=== PATIENT | female | born 1945 | race Caucasian/White ===

== ENCOUNTER 2024-06-01 09:12 | Observation (INO) ==
--- NOTE | 2024-05-21 10:15 | Anesthesiology Consultation ---
Date of Service May 21, 2024 Assessment & Plan (1) Encounter for pre-operative examination: - check BMP STAT am DOS. Fluid orders to anesthesiologist review am DOS. - left arm restriction. - Per aircraft launch and recovery technician on 05/21/24: No known infectious disease contacts, current infectious disease symptoms in past 10 days or COVID positive test result in the past 30 days. Chart Review Chart Review: Acceptable Risk for Surgery and Patient NOT seen in Pre Admission Testing History Surgery Operation Date: 06/01/24 10:20 Proposed Procedures p Robotic Assisted Laparoscopic Hysterectomy, Bilateral Salpingo-Oophorectomy, Robotic Assisted Sacral Colpopexy, Cystoscopy and - Fred Fulton MD s Mid Urethral Sling - Fred Fulton MD Height/Weight Height: 5 ft 3 in Weight: 63.503 kg Allergies Allergy/AdvReac Type Severity Reaction Status Date / Time No Known Allergies Allergy Verified 05/21/24 09:22 Medications Home Medications Medication Instructions Recorded Confirmed Last Taken amlodipine 5 mg tablet 10 mg PO QAM 05/21/24 05/21/24 Unknown aspirin 81 mg tablet,delayed 81 mg PO QAM 05/21/24 05/21/24 Unknown release atorvastatin 20 mg tablet 80 mg PO Q OTHER DAY 05/21/24 05/21/24 Unknown clopidogrel 75 mg tablet 75 mg PO QAM 05/21/24 05/21/24 Unknown Past Medical History Medical History (Updated 05/21/24 @ 10:07 by Jessica Lazaro PA-C) Hx-TIA (transient ischemic attack) May 23, 2023 > no residual effects HX: breast cancer 2011 > sx and chemo pill since NE'ed Hyperlipidemia Hypertension Past Surgical History Surgical History History of adenoidectomy History of tonsillectomy History of tooth extraction Hx of left mastectomy 2011 Social History Smoking Status: Never smoker Do You Dip or Chew Tobacco: No Hx Alcohol Use: No Hx Substance Use: No substance use type: does not use Testing Laboratory Results 05/07/24 WBC: 6.9 H/H: 12/39 PLATELETS: 244,000 Electrocardiogram Date: 05/07/24 NSR, rate 80 bpm Low voltage QRS consider pulmonary disease, pericardial effusion or normal variant Other Testing MRI brain 05/23/23 Punctate acute/subacute lacunar ischemia in the left thalamus. No acute intracranial hemorrhage, mass effect nor midline shift. Hyperintense T2/FLAIR signal within the periventricular subcortical white matter as well as the carol compatible with chronic small vessel ischemic disease or nonspecific demyelinating process. CT head/brain w/o contrast 05/23/23 Likely sequela of chronic small vessel ischemic disease. No acute intracranial findings. CTA head/neck 05/23/23 No acute CTA abnormalities of the intracranial arterial vasculature involving the anterior or posterior circulation. Codominant vertebrobasilar system. Right vertebral dolichoectasia. No acute CTA abnormality of the extracranial carotid or vertebral arterial vasculature. Mild grade stenosis of the right carotid bulb estimated at 30-40%. Mild eccentric calcified plaque at the left carotid bulb without significant stenosis. Carotid doppler 10/02/18 Less than 50% stenosis bilat ICAs
--- NOTE | 2024-06-01 05:46 | History & Physical Report ---
Date of Service June 01, 2024 Assessment & Plan (1) Uterovaginal prolapse, incomplete: Plan: Offered patient incontinence ring pessary to address the JESSICA symptoms, she declined. She is only interested in surgical options. 1. We discussed transvaginal approach with vaginal hysterectomy, possible BSO, uterosacral ligament suspension, anterior and posterior colporrhaphy, sling, and cystoscopy 2. We discussed robotic approach with robotic hysterectomy, BSO, sacral colpopexy, sling, and cystoscopy. I reviewed the risks of surgery including infection, bleeding, injury, pain, mesh exposure, urinary retention, recurrence. All questions answered. Mrs House would like to proceed with robotic hysterectomy, BSO, sacral colpopexy, sling, and cystoscopy. Informed consent confirmed. Present on Admission?: Yes Admission and Anticipated Discharge Date Admission Date: 06/01/2024 Anticipated date of discharge: 06/02/24 History of Present Illness Chief Complaint: Pelvic organ prolapse and stress urinary incontinence Primary Care Provider: CARLOS ALBERTO Garza Eunice House complains of having a prolapse for more than year. Last summer, she had a pessary placed which holds the prolapse in. Unfortunately, the pessary seemed to worsen her stress urinary incontinence. She has JESSICA daily when walking briskly, coughing, sneezing, or lifting. She has occasional urgency, but only has occasional urge incontinence if she waits too long. She awakens 1-2 times a night to use the restroom. She feels that she empties her bladder well. Denies dysuria [facility] Urogyn notes were reviewed. Patient has Grade 3 cystocele, grade 2 uterine prolapse and grade 2 rectocele. Currently using a ring pessary. Allergies Allergy/AdvReac Type Severity Reaction Status Date / Time No Known Allergies Allergy Verified 06/01/24 09:41 Home Medications Medication Instructions Recorded Confirmed Type amlodipine 5 mg tablet 10 mg PO QAM 05/21/24 06/01/24 History aspirin 81 mg tablet,delayed 81 mg PO QAM 05/21/24 06/01/24 History release atorvastatin 80 mg tablet 40 mg PO HS 06/01/24 06/01/24 History Past Med/Surg History Problem List Uterovaginal prolapse, incomplete Encounter for pre-operative examination Medical History Hx-TIA (transient ischemic attack) May 23, 2023 > no residual effects HX: breast cancer 2011 > sx and chemo pill since DC'ed Hyperlipidemia Hypertension Surgical History History of tooth extraction History of adenoidectomy History of tonsillectomy Hx of left mastectomy 2011 Social History Smoking Status: Never smoker Second Hand Exposure: No; Do You Dip or Chew Tobacco: No; Tobacco Cessation Education Requested by Patient: No Hx Alcohol Use: No Hx Substance Use: No Preferred Language: Yoruba Communication Ability: Effective Shingles Roofer Required: No Beliefs That Will Affect Care: None Current Living Situation: Spouse and Family Other Information That Helps Us Care for You: No Feels Safe at Home: Yes Safety Concerns: Feels Safe At This Time Assistive Devices: Denture - Upper, Denture - Lower and Glasses Review of Systems Review of Systems: All systems reviewed & are unremarkable except as noted in HPI & below Physical Exam Constitutional: WD/WN, vitals as above Eyes: PERRL, conjunctivae normal, anicteric sclerae Neck: trachea midline, no thyromegaly Respiratory: normal respiratory effort Cardiovascular: Rate/Rhythm: regular rate Gastrointestinal (Abdomen): normal bowel sounds, soft, nontender, no hepatosplenomegaly Musculoskeletal: no cyanosis or clubbing, extremities motor strength 5/5 Skin: no rashes, warm and dry Psychiatric: A+Ox3, euthymic affect Code Status & VTE Plan VTE Prophylaxis Plan VTE Prophylaxis will be ordered: Yes
[2024-06-01] MEDS: SODIUM CHLORIDE 0.9% 1,000 ML IV SCH (09:49)
[2024-06-01 09:52] LABS: BUN Creatinine Ratio 21.3 (10-20); Calcium 9.2 mg/dl (8.6-10.3); Est GFR (African American) 81.3 ml/min; Est GFR (Non-African American) 70.1 ml/min; Potassium 4.3 mmol/L (3.5-5.1)
[2024-06-01] MEDS ORDERED: ePHEDrine sulfate 50 MG/ML AMP IV PRN (10:46)
[2024-06-01] MEDS ORDERED: PROMETHAZINE HCL 6.25 MG in SODIUM CHLORIDE 0.9% 50 ML IV PRN (10:46)
[2024-06-01] MEDS ORDERED: ATROPINE SULFATE 0.1 MG/ML 10ML SYR IV PRN (10:46)
[2024-06-01] MEDS ORDERED: ONDANSETRON INJ 2 MG/ML 2 ML VIAL IV PRN ×2 (10:46→13:47)
[2024-06-01] MEDS ORDERED: HYDROmorphone INJ 2 MG/ML SYR/VIAL IV PRN (10:46)
[2024-06-01] MEDS ORDERED: fentaNYL citrate PF 100 MCG/2 ML VIAL ONE (11:01)
[2024-06-01] MEDS ORDERED: MIDAZOLAM HCL 1 MG/ML 2ML VIAL ONE (11:01)
[2024-06-01] MEDS: metroNIDAZOLE 500 MG/100 ML BAG IV SCH (11:10)
[2024-06-01] MEDS: ceFAZolin 2000MG 2,000 MG/15 ML SYR IV SCH (11:30)
[2024-06-01] MEDS: BUPIVACAINE 0.5 % 5 MG/1 ML MPF 30ML VIAL ONE (13:13)
[2024-06-01] MEDS ORDERED: PROPOFOL IV EMULSION 10 MG/ML 20 ML VIAL IV ONE (13:20)
[2024-06-01] MEDS ORDERED: LIDOCAINE 2% 2 ML VIAL/AMP(20MG/ML) INFIL ONE (13:20)
[2024-06-01] MEDS ORDERED: DEXAMETHASONE SOD INJ 4 MG/ML VIAL ONE (13:20)
[2024-06-01] MEDS ORDERED: ROCURONIUM BROMIDE 10 MG/ML 5 ML VIAL IV ONE (13:20)
[2024-06-01] MEDS ORDERED: ONDANSETRON INJ 2 MG/ML 2 ML VIAL ONE (13:20)
[2024-06-01] MEDS: LIDOCAINE 1%/EPINEPHRINE 1:100,000 50 ML VIAL INJ ONE (13:22)
[2024-06-01] MEDS ORDERED: NEOSTIGMINE METHYLSULFATE 1 MG/ML 10ML VIAL ONE (13:24)
[2024-06-01] MEDS ORDERED: GLYCOPYRROLATE 0.2 MG/ML VIAL ONE (13:24)
--- NOTE | 2024-06-01 13:45 | Operative Report ---
Post Operative Report Pre & Post Diagnosis Operation Date: 06/01/24 10:50 Pre-Op Diagnosis: Uterovaginal prolapse, incomplete, Stress urinary incontinence Post-Op Diagnosis: Uterovaginal prolapse, incomplete, Stress urinary incontinence I identified the patient and participated in the time-out.: Yes Procedure Operation Date: 06/01/24 10:50 Actual Procedures p Robotic Assisted Laparoscopic Hysterectomy, Bilateral Salpingo-Oophorectomy, Robotic Assisted Sacral Colpopexy, Cystoscopy and, Mid-Urethral Sling(Not Applicable) - Fred Fulton MD Surgeon Fred Fulton MD Wool Washer Anna Gomez PA-C Estimated Blood Loss 25 Findings Consistent with Post-Op Diagnosis Grade 3 uterovaginal prolapse. Normal appearing cervix, uterus, tubes, and ovaries. Excellent efflux of ureters bilaterally. Normal cystoscopy Fluids crystalloid Specimens cervix, uterus, tubes, and ovaries Drains Tafoya catheter Anesthesia Type General Complications none Disposition Accompanied Patient To Recovery: Yes Disposition: Recovery Room Indications symptomatic uterovaginal prolapse, JESSICA. No longer wishes to use a pessary Description of Procedure After Sudha House was correctly identified in the preoperative area, the indications, risks, benefits, and alternatives were reviewed. All questions answered. Informed consent was confirmed. Patient was then taken to the operating room and given general anesthesia by anesthesia service. She was then placed in dorsal lithotomy position using Dionisio stirrups. She was prepped and draped in the usual sterile fashion. Time out was performed. A Tafoya catheter was placed. The cervix was grasped with a tenaculum and sounded. The cervix was serially dilated and a medium size uterine manipulator was placed. Attention was then focused to the abdomen. An 8mm incision was made in the umbilicus. An 8 mm trocar with Optiview was inserted into the incision and advanced into the abdominal cavity under direct visualization. The abdomen was insufflated with CO2 gas. Inspection revealed no adhesions. On the left, two 8 mm trocars were placed. On the right, two 8 mm trocars were placed. The patient was placed in Trendelenburg position to allow the small bowel to retract out of the pelvis. The robot was docked. The ureters were well visualized bilaterally. The left IP ligament was grasped, vessel sealed, and transected. The left round ligament was grasped, vessel sealed and transected. The bladder flap was developed. The left uterine vessels were dissected, grasped, vessel sealed, and transected at the level of the cervical cup of the uterine manipulator. The right IP ligament was grasped, vessel sealed, and transected. The right round ligament was grasped, vessel sealed and transected. The bladder flap was completed. The right uterine vessels were dissected, grasped, vessel sealed, and transected at the level of the cervical cup of the uterine manipulator. A colpotomy incision was made following the contours of the cervical cup. The cervix,uterus, tubes, and ovaries were delivered out the vagina and sent to pathology as specimen. The vaginal cuff was closed with 0 V-lock suture in two layers in a running fashion. The bladder was then dissected off the anterior vaginal wall. The rectum was then dissected off the posterior vaginal wall. A peritoneal incision was made from the sacral promontory and extended to the right corner of the vaginal cuff along the right josefina-colic gutter. The Y mesh was then secured to the anterior and posterior vaginal wall with 2-0 V lock suture in a running fashion. The tail end of the mesh was secured to the anterior longitudinal ligament just below the sacral promontory with 3 interrupted sutures of CV-0 [place]-allyn. The excess mesh was trimmed and removed. The peritoneum was closed over the mesh with 2-0 V lock suture in a running fashion. Floseal was applied to the pedicles. Excellent hemostasis was confirmed. The robot was undocked. The trocars were removed under direct visualization. The incisions were closed with 4-0 Monocryl in a subcuticular fashion. Attention was then focused vaginally. The vaginal mucosa overlying the mid urethra was grasped with Allis clamps and infiltrated with 0.5% lidocaine with epinephrine. A midline incision was made with the scalpel. The Solyx sling was assembled. The introducer was placed through the incision, advanced to the left pubic rami and inserted into the right obturator internus muscle. The introducer with the other end of the sling was placed through the incision,advanced to the right pubic rami and inserted into the right obturator internus muscle. Excellent hemostasis was noted. The Tafoya catheter was removed and cystoscopy was performed with a 17F 70 deg scope. Systematic inspection of the bladder dome, trigone, and urethra revealed no lesions. Excellent efflux of clear urine was demonstrated bilaterally. The scope was removed and the Tafoya catheter was inserted. The incision was closed with 2-0 Vicryl in a running fashion. All sponge lap and needle counts were correct x 2. Patient was then awakened, extubated and sent to recovery in good condition. I attest to the content of the Intraoperative Record and any orders documented therein. Any exceptions are noted below. No qualified resident was available. An advanced provider,Anna Gomez PA-C, was needed to assist with patient positioning, draping, retraction, irrigation, robotic instrument exchange, and wound closure.
[2024-06-01] MEDS ORDERED: oxyCODONE/ACETAMINOPHEN 5mg/325mg TAB PO PRN ×2 (13:47)
[2024-06-01] MEDS ORDERED: ACETAMINOPHEN 325 MG TAB PO PRN (13:47)
[2024-06-01] MEDS: fentaNYL citrate PF 100 MCG/2 ML VIAL IV PRN (14:13)
--- NOTE | 2024-06-01 14:16 | Anesthesiology Progress Note ---
Date of Service June 01, 2024 Anesthesia Post Procedure Vital Signs Vital Signs: Temp Pulse Pulse Resp BP Pulse Ox O2 Del Method 06/01/24 14:00 67 17 144/68 H 98 Oxymask 06/01/24 13:50 36.1 C L 71 16 143/67 H 97 Oxymask 06/01/24 09:39 36.7 C 77 18 156/69 H 97 Room Air O2 Flow Rate 06/01/24 14:00 5 06/01/24 13:50 5 06/01/24 09:39 Transfer of Care Handoff Completed per policy Notes Mental Status: alert / awake / arousable and participated in evaluation Patient Amnestic to Procedure: Yes Nausea / Vomiting: adequately controlled Pain: adequately controlled Airway Patency, RR, SpO2: stable & adequate BP & HR: stable & adequate Hydration State: stable & adequate Anesthetic Complications: no major complications apparent
[2024-06-01] MEDS: ATORVASTATIN 40 MG TAB PO SCH (20:25)
--- OUTSIDE RECORDS SUMMARY | 2024-06-01 20:30 | External Medical Summary | Summary of Care ---
Author Name Unknown Organization [facility] Address [address] [place] [address] Phone [phone] Care Team Providers Care Electronics Test Engineer Name Role Phone KangHailey Jose Elias CARCAMO Primary Care Provider Encounter Details Date Type Department Care Team (Late st Contact Info) Description 04/16/2024 Result Scan Unspecified Department <No scans attached> Allergies No known active allergiesdocumented as of this encounter (statuses as of 05/17/2024) Medications Medication Sig Dispensed Refills Start Date End Date Status Tamoxifen Citrate 20 MG TabletIndications:Ma lignant neoplasm 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 90 Tab 3 07/06/2018 Active Additional Information Patient not taking.Reported on 12/01/2021 amLODIPine Besylate 10 MG Oral Tablet (Norvasc) Take 1 Tablet by mouth. 11/03/2023 Active Aspirin 81 MG Oral Tablet Chewable Take 1 Tablet by mouth in the morning. 06/26/2023 Active Atorvastatin Calcium 80 MG Oral Tablet (Lipitor) Take 1 Tablet by mouth at bedtime. 11/03/2023 Active documented as of this encounter (statuses as of 05/17/2024) Active Problems Problem Noted Date Diagnosed Date Uterovaginal prolapse, incomplete 03/21/2024 Stress incontinence 03/21/2024 Malignant neoplasm of upper- inner quadrant of right breast in female, estrogen receptor positive 11/29/2017 documented as of this encounter (statuses as of 05/17/2024) Social History Tobacco Use Types Packs/Day Years Used Date Smoking Tobacco: Never Smokeless Tobacco: Never Alcohol Use Standard Drinks/Week Comments No 0 (1 standard drink = 0.6 oz pur e alcohol) Utilities Answer Date Recorded Do you have trouble paying y our heating, water, or electric bill? (Adult - for ages 18 years and over) Not on file 05/08/2024 Is your family able to pay t he heat, water, or electric bill? (Household - for ages 0-17 years) Not on file 05/08/2024 Does your family have access to good internet? (Household - for ages 0-17 years) Not on file 05/08/2024 Social Connections Answer Date Recorded How often do you feel lonely or isolated from those around you? (Adult - for ages 18 years and over) Not on file 05/08/2024 Sex and Gender Information Value Date Recorded Sex Assigned at Not on file Gender Identity Not on file Sexual Orientation Not on file Job Start Date Occupation Industry Not on file Not on file Not on file documented as of this encounter Plan of Treatment Upcoming Encounters Date Type Department Care Team (Late st Contact Info) Description 06/13/2024 8:00 AM EDT Telemedicine Urogynecology [facility] [address] [place] [id number] Fred Fulton MD [address] [place] [phone] 07/11/2024 9:40 AM EDT Office Visit Urogynecology [facility] [address] [place] [id number] Fred Fulton MD [address] [place] [id number] Health Maintenance Due Date Last Done Comments DXA Scan 1944 Depression Screening 1956 Hepatitis C Screening 1962 DTaP,Tdap,and Td Vaccines (1 - Tdap) 1963 Zoster Vaccines (1 of 2) 1994 Pneumococcal Vaccine: 65+ Ye ars (1 of 1 - PCV) 2009 COVID-19 Vaccine ( - 2022-2 4 season) 2023 Influenza Vaccine (FLU shot) (Season Ended) 2024 GARDASIL-HPV IMMUNIZATION SERIES Aged Out No longer eligible based on patient's age to complete this topic Hepatitis B Aged Out No longer eligi ble based on patient's age to complete this topic MENINGOCOCCAL (MENACTRA/MENVEO) Aged Out No longer eligible based on patient's age to complete this topic documented as of this encounter Medical Devices Not on filedocumented as of this encounter Procedures Procedure Name Priority Date/Time Associated Diagnosis Comments OUTSIDE LAB RESULTS 04/16/2024 documented in this encounter Results * OUTSIDE LAB RESULTS (04/16/2024) 04/16/2024 No Physician Data Unknown LABORATORY documented in this encounter Care Teams Electronics Test Engineer Relationship Specialty Start Date End Date Hailey Kang CRNP PCP - General Nurse Practitioner 12/06/18 documented as of this encounter
[2024-06-01] MEDS: IBUPROFEN 600 MG TAB PO PRN (23:14)
[2024-06-02 07:06] LABS: Basophils # (auto) 0.01 K/uL (0.00-0.20); Basophils % (auto) 0.1 %; Hematocrit (blood only) 39.6 % (37.0-47.0); Hemoglobin 13.6 g/dl (12.0-16.0); Immature Granulocytes # (auto) 0.06 K/uL (0.01-0.20); Immature Granulocytes % (auto) 0.5 %; Lymphocytes # (auto) 1.37 K/uL (1.20-3.40); Lymphocytes % (auto) 11.3 %; Mean Corpuscular Hemoglobin 30.4 pg (25.0-34.0); Mean Corpuscular Hgb Conc 34.3 g/dL (32.0-36.0); Mean Corpuscular Volume 88.4 fL (80.0-100.0); Mean Platelet Volume 9.1 fL (9.4-12.4); Monocytes % (auto) 7.4 %; Neutrophils # (auto) 9.82 K/uL (1.40-6.50); Neutrophils % (auto) 80.7 %; Platelet Count 241 K/uL (130-400); Red Blood Count 4.48 M/uL (4.20-5.40); White Blood Count 12.16 K/ul (4.8-10.8)
[2024-06-02 07:14] LABS: BUN Creatinine Ratio 21.4 (10-20); Calcium 8.6 mg/dl (8.6-10.3); Creatinine Clr Calc Pharmacy 58.3 ml/min; Est GFR (African American) 95.5 ml/min; Est GFR (Non-African American) 82.4 ml/min; Potassium 3.8 mmol/L (3.5-5.1)
[2024-06-02] MEDS: amLODIPine BESYLATE 5 MG TAB PO SCH (07:57)
--- NOTE | 2024-06-02 08:18 | Gynecologic Progress Note ---
Date of Service June 02, 2024 Assessment & Plan (1) Uterovaginal prolapse, incomplete: Plan: s/p robotic hysterectomy, BSO, sacral colpopexy, sling, and cystoscopy. POD#1 Patient is recovering well. Passed Voiding trial this AM. Discharge instructions reviewed. All questions answered. Discharge home. Follow up appointments confirmed. Present on Admission?: Yes Admission and Anticipated Discharge Date Admission Date: June 01, 2024 Subjective Patient feeling well. Pain well controlled. No nausea, no chest pain, no shortness of breath. Feeling hungry. Review of Systems Review of Systems: All systems reviewed & are unremarkable except as noted in HPI & below Physical Exam Constitutional: WD/WN, vitals as above Eyes: PERRL, conjunctivae normal, anicteric sclerae Neck: trachea midline, no thyromegaly Respiratory: normal respiratory effort Cardiovascular: Rate/Rhythm: regular rate Gastrointestinal (Abdomen): normal bowel sounds, soft, nontender, no hepatosplenomegaly Incisions clean dry and intact. Non tender Musculoskeletal: no cyanosis or clubbing, extremities motor strength 5/5 NT calves Skin: no rashes, warm and dry Psychiatric: A+Ox3, euthymic affect Results & Data Vital Signs (Past 12 Hours) Vital Signs Temp Pulse Pulse Resp BP Pulse Ox O2 Del Method 06/02/24 04:04 37 C 98 H 18 155/80 H 97 Room Air 06/01/24 23:30 36.9 C 93 H 18 161/93 H 96 Room Air
--- NOTE | 2024-06-02 08:26 | Discharge Summary ---
Date of Service June 02, 2024 Admission HPI Per Admitting Provider Sudha House complains of having a prolapse for more than year. Last summer, she had a pessary placed which holds the prolapse in. Unfortunately, the pessary seemed to worsen her stress urinary incontinence. She has JESSICA daily when walking briskly, coughing, sneezing, or lifting. She has occasional urgency, but only has occasional urge incontinence if she waits too long. She awakens 1-2 times a night to use the restroom. She feels that she empties her bladder well. Denies dysuria [facility] Urogyn notes were reviewed. Patient has Grade 3 cystocele, grade 2 uterine prolapse and grade 2 rectocele. Currently using a ring pessary. Admission Exam (Per Admitting) Constitutional WD/WN, vitals as above Eyes PERRL, conjunctivae normal, anicteric sclerae Neck trachea midline, no thyromegaly Respiratory normal respiratory effort Cardiovascular Rate/Rhythm: regular rate Gastrointestinal (Abdomen) normal bowel sounds, soft, nontender, no hepatosplenomegaly Musculoskeletal no cyanosis or clubbing, extremities motor strength 5/5 Skin no rashes, warm and dry Psychiatric A+Ox3, euthymic affect Discharge Data Procedures Performed Operation Date: 06/01/24 10:50 Actual Procedures p Robotic Assisted Laparoscopic Hysterectomy, Bilateral Salpingo-Oophorectomy, Robotic Assisted Sacral Colpopexy, Cystoscopy and, Mid-Urethral Sling(Not Applicable) - Fred Fulton MD Hospital Course (1) Uterovaginal prolapse, incomplete: s/p robotic hysterectomy, BSO, sacral colpopexy, sling, and cystoscopy. POD#1 Patient is recovering well. Passed Voiding trial this AM. Discharge instructions reviewed. All questions answered. Discharge home. Follow up appointments confirmed.
== END 2024-06-02 10:35 | disposition home or self-care (01) ==
LOC: ASU 09:12 → 4E1 09:12